=== PATIENT | male | born 1935 | race Caucasian/White ===

== ENCOUNTER → 2017-05-05 | Outpatient (CLI) | payer MEDICARE, OTHER ==
[2017-05-05 11:37] LABS: ALANINE AMINOTRANSFERASE 25 U/L (12-78); ALBUMIN 3.4 G/DL (3.4-5.0); ALKALINE PHOSPHATASE 76 IU/L (46-116); ANION GAP 9 (8-16); ASPARTATE AMINO TRANSFERASE 25 U/L (10-37); BILIRUBIN,TOTAL 0.7 MG/DL (0.1-1.0); BLOOD UREA NITROGEN 21 MG/DL (7-18); BUN/CREATININE RATIO 14.5 (5.4-32.0); CALCIUM 8.5 MG/DL (8.5-10.1); CHLORIDE 100 MMOL/L (99-107); CREATININE 1.45 MG/DL (0.60-1.10); GLUCOSE 131 MG/DL (70-104); POTASSIUM 4.1 MMOL/L (3.5-5.1); SODIUM 136 MMOL/L (135-145); TOTAL CARBON DIOXIDE 27.1 MMOL/L (24-32); TOTAL PROTEIN 6.9 G/DL (6.4-8.2); eGFR 46 ML/MIN
== END ==
LOC: LAB 10:08
PROVIDERS: ATTEND Specialist
DX: D35.2 Benign neoplasm of pituitary gland (principal); E06.3 Autoimmune thyroiditis
CPT/HCPCS: 36415; 80053; 84146; 84439; 84443

== ENCOUNTER 2017-05-27 08:47 | Inpatient (IN) | payer MEDICARE, OTHER ==
[~2017-05-27] VITALS: Ht 5954.8 cm; Wt 78.1 kg
[2017-05-27 09:22] LABS: BASOPHILS # (AUTO) 0.1 X10'3 (0-0.2); BASOPHILS % (AUTO) 0.7 % (0-1); EOSINOPHILS # (AUTO) 0.3 X10'3 (0-0.9); EOSINOPHILS % (AUTO) 3.4 % (0-6); HEMATOCRIT 39.8 % (42.0-52.0); HEMOGLOBIN 13.4 g/dl (14.0-17.9); LYMPHOCYTES # (AUTO) 1.2 X10'3 (1.1-4.8); LYMPHOCYTES % (AUTO) 15.5 % (21-51); MEAN CORPUSCULAR HEMOGLOBIN 32.3 PG (27.0-31.0); MEAN CORPUSCULAR HGB CONC 33.7 % (33.0-36.5); MEAN CORPUSCULAR VOLUME 95.9 FL (78-98); MONOCYTES # (AUTO) 0.3 X10'3 (0-0.9); MONOCYTES % (AUTO) 3.4 % (2-12); NEUTROPHILS # (AUTO) 6.1 X10'3 (1.8-7.7); PLATELET COUNT 144 X10'3 (140-440); RED BLOOD COUNT 4.15 X10'6 (4.70-6.10); WHITE BLOOD COUNT 7.9 X10'3 (4.5-11.0)
[2017-05-27 09:34] LABS: INR 1.4 INR; PARTIAL THROMBOPLASTIN TIME 30 SECONDS (22-32); PROTHROMBIN TIME 14.3 SECONDS (9.0-12.0)
[2017-05-27 09:38] LABS: ALANINE AMINOTRANSFERASE 80 U/L (12-78); ALBUMIN 3.6 G/DL (3.4-5.0); ALBUMIN/GLOBULIN RATIO 1.1 (1.1-1.5); ALKALINE PHOSPHATASE 113 IU/L (46-116); ANION GAP 13 (8-16); ASPARTATE AMINO TRANSFERASE 66 U/L (10-37); BILIRUBIN,TOTAL 2.1 MG/DL (0.1-1.0); BLOOD UREA NITROGEN 42 MG/DL (7-18); BUN/CREATININE RATIO 20.3 (5.4-32.0); CALCIUM 9.1 MG/DL (8.5-10.1); CHLORIDE 105 MMOL/L (99-107); CREATININE 2.07 MG/DL (0.60-1.10); GLUCOSE 70 MG/DL (70-104); POTASSIUM 4.4 MMOL/L (3.5-5.1); SODIUM 142 MMOL/L (135-145); TOTAL CARBON DIOXIDE 24.2 MMOL/L (24-32); TOTAL PROTEIN 6.9 G/DL (6.4-8.2); eGFR 31 ML/MIN
[2017-05-27] MEDS ORDERED: diltiazem-D5W 125mg/125ml 125 ML IV ONE (09:46)
[2017-05-27] MEDS ORDERED: diltiazem 5mg/ml 5ml inj. IV ONE (09:50)
[2017-05-27 10:15] LABS: MAGNESIUM 2.3 MG/DL (1.5-2.4)
[2017-05-27 10:30] LABS: ANISOCYTOSIS 1+; PLATELET ESTIMATE NORMAL
[2017-05-27 10:31] LABS: BURR CELLS 2+; ELLIPTOCYTES FEW; POLYCHROMASIA FEW; SCHISTOCYTES FEW
[2017-05-27 10:32] LABS: SPHEROCYTES FEW
[2017-05-27] MEDS ORDERED: LISI-600 PO (10:32)
[2017-05-27] MEDS ORDERED: LEVO75TA56 PO (10:33)
[2017-05-27] MEDS ORDERED: HYDR10TA14 PO (10:35)
[2017-05-27] MEDS ORDERED: CABE0.5T2 PO (10:40)
[2017-05-27] MEDS ORDERED: METO25TA6 PO (10:40)
[2017-05-27] MEDS ORDERED: APIX5TAB3 PO (10:41)
[2017-05-27] MEDS ORDERED: magnesium hydroxide 30ml (MOM) UD suspension PO PRN (10:45)
[2017-05-27] MEDS ORDERED: magnesium 4gm in 100ml NS 100 ML IV PRN (10:45)
[2017-05-27] MEDS ORDERED: potassium Cl 20 mEq SR tablet PO PRN ×2 (10:45)
[2017-05-27] MEDS ORDERED: magnesium 2GM in 50ml NS 50 ML IV PRN (10:45)
[2017-05-27] MEDS ORDERED: MORPHINE 2MG in 2ml NS syringe IV PRN (10:45)
[2017-05-27] MEDS ORDERED: potassium Cl 40MEQ/NS 500ml 500 ML IV PRN ×2 (10:45)
[2017-05-27] MEDS ORDERED: mag hydrox/Alum hydrox/simeth 30ml oral suspension PO PRN (10:45)
[2017-05-27] MEDS ORDERED: magnesium Cl slow-release 64mg tablet PO PRN (10:45)
[2017-05-27] MEDS ORDERED: HYDROcodone/acetaminophen 10/325mg tab PO PRN (10:45)
[2017-05-27] MEDS ORDERED: HYDROcodone/acetaminophen 5mg/325mg tablet PO PRN (10:45)
[2017-05-27] MEDS ORDERED: acetaminophen 325mg tablet PO PRN ×2 (10:45)
[2017-05-27] MEDS ORDERED: ondansetron/PF 4mg/2ml inj IV PRN (10:45)
[2017-05-27] MEDS ORDERED: morphine 4 MG/ML inj SYRINge IV PRN (19:03)
[2017-05-28 07:54] LABS: BASOPHILS % (AUTO) 0.7 % (0-1); EOSINOPHILS # (AUTO) 0.3 X10'3 (0-0.9); EOSINOPHILS % (AUTO) 7.3 % (0-6); HEMATOCRIT 35.2 % (42.0-52.0); HEMOGLOBIN 11.6 g/dl (14.0-17.9); LYMPHOCYTES # (AUTO) 0.7 X10'3 (1.1-4.8); LYMPHOCYTES % (AUTO) 16.5 % (21-51); MEAN CORPUSCULAR HEMOGLOBIN 31.9 PG (27.0-31.0); MEAN CORPUSCULAR HGB CONC 32.9 % (33.0-36.5); MEAN CORPUSCULAR VOLUME 97.1 FL (78-98); MEAN PLATELET VOLUME 9.1 FL (7.4-10.4); MONOCYTES # (AUTO) 0.2 X10'3 (0-0.9); MONOCYTES % (AUTO) 5.1 % (2-12); NEUTROPHILS # (AUTO) 3.1 X10'3 (1.8-7.7); NEUTROPHILS % (AUTO) 70.4 % (42-75); PLATELET COUNT 115 X10'3 (140-440); RED BLOOD COUNT 3.62 X10'6 (4.70-6.10); RED CELL DISTRIBUTION WIDTH 17.8 % (11.5-14.5); WHITE BLOOD COUNT 4.5 X10'3 (4.5-11.0)
[2017-05-28] MEDS: K and/or MAG REPLACEMENT MC SCH (08:00)
[2017-05-28 08:07] LABS: ALBUMIN 2.8 G/DL (3.4-5.0); ANION GAP 12 (8-16); BLOOD UREA NITROGEN 32 MG/DL (7-18); BUN/CREATININE RATIO 19.6 (5.4-32.0); CHLORIDE 108 MMOL/L (99-107); CREATININE 1.63 MG/DL (0.60-1.10); GLUCOSE 54 MG/DL (70-104); POTASSIUM 4.1 MMOL/L (3.5-5.1); SODIUM 143 MMOL/L (135-145); eGFR 41 ML/MIN
[2017-05-28] MEDS: levoTHYROXINE 75mcg tablet PO SCH (08:14)
[2017-05-28] MEDS: lisinopril 20mg tablet PO SCH (08:14)
[2017-05-28] MEDS: metoprolol tartrate 12.5mg (1/2 tablet) PO SCH ×2 (08:14→20:00)
[2017-05-28 08:32] LABS: PLATELET ESTIMATE DECREASED
[2017-05-28 08:33] LABS: ANISOCYTOSIS 2+
[2017-05-28] MEDS ORDERED: CABERGOLINE 1 MG PO SCH (09:00)
[2017-05-28] MEDS ORDERED: CABERGOLINE 0.5 MG PO SCH (09:03)
[2017-05-28] MEDS: hydrocortisone 10mg tablet PO SCH (10:09)
[2017-05-28] MEDS: apixaban 2.5mg tablet PO SCH ×2 (10:09→21:34)
[2017-05-28 12:30] VITALS: BP 100/52
[2017-05-28 15:00] VITALS: BP 95/50
[2017-05-28] MEDS ORDERED: pneumococcal 23-VAL P-sac vacc 25 mcg/0.5ml vial IMVAC ONE (17:55)
[2017-05-28 18:00] VITALS: BP 89/46
[2017-05-28 22:00] VITALS: BP 101/54
[2017-05-29 02:00] VITALS: BP 98/52
[2017-05-29 05:50] LABS: BASOPHILS % (AUTO) 0.3 % (0-1); EOSINOPHILS # (AUTO) 0.2 X10'3 (0-0.9); EOSINOPHILS % (AUTO) 3.3 % (0-6); HEMATOCRIT 33.9 % (42.0-52.0); HEMOGLOBIN 11.4 g/dl (14.0-17.9); LYMPHOCYTES # (AUTO) 0.5 X10'3 (1.1-4.8); LYMPHOCYTES % (AUTO) 11.4 % (21-51); MEAN CORPUSCULAR HEMOGLOBIN 32.1 PG (27.0-31.0); MEAN CORPUSCULAR HGB CONC 33.6 % (33.0-36.5); MEAN CORPUSCULAR VOLUME 95.7 FL (78-98); MEAN PLATELET VOLUME 9.7 FL (7.4-10.4); MONOCYTES # (AUTO) 0.2 X10'3 (0-0.9); MONOCYTES % (AUTO) 5.1 % (2-12); NEUTROPHILS # (AUTO) 3.7 X10'3 (1.8-7.7); NEUTROPHILS % (AUTO) 79.9 % (42-75); PLATELET COUNT 120 X10'3 (140-440); RED BLOOD COUNT 3.54 X10'6 (4.70-6.10); RED CELL DISTRIBUTION WIDTH 17.6 % (11.5-14.5); WHITE BLOOD COUNT 4.7 X10'3 (4.5-11.0)
[2017-05-29 06:00] VITALS: BP 106/59
[2017-05-29 06:36] LABS: ALBUMIN 2.6 G/DL (3.4-5.0); ANION GAP 9 (8-16); BLOOD UREA NITROGEN 24 MG/DL (7-18); BUN/CREATININE RATIO 17.6 (5.4-32.0); CALCIUM 7.8 MG/DL (8.5-10.1); CHLORIDE 105 MMOL/L (99-107); CREATININE 1.36 MG/DL (0.60-1.10); GLUCOSE 77 MG/DL (70-104); POTASSIUM 4.2 MMOL/L (3.5-5.1); SODIUM 139 MMOL/L (135-145); TOTAL CARBON DIOXIDE 25.3 MMOL/L (24-32); eGFR 50 ML/MIN
[2017-05-29] MEDS: lisinopril 20mg tablet PO SCH (07:32)
[2017-05-29] MEDS: levoTHYROXINE 75mcg tablet PO SCH (07:32)
[2017-05-29] MEDS: apixaban 2.5mg tablet PO SCH ×2 (07:32→20:04)
[2017-05-29] MEDS: metoprolol tartrate 12.5mg (1/2 tablet) PO SCH (07:32)
[2017-05-29] MEDS: hydrocortisone 10mg tablet PO SCH (07:33)
[2017-05-29] MEDS: K and/or MAG REPLACEMENT MC SCH (08:00)
[2017-05-29 11:00] VITALS: BP 94/66
[2017-05-29 15:00] VITALS: BP 94/62
[2017-05-29 19:00] VITALS: BP 97/55
[2017-05-29] MEDS: metoprolol succinate 25mg (24-HOUR) SR. Tablet PO SCH (20:03)
[2017-05-29 23:00] VITALS: BP 115/68
[2017-05-30 03:00] VITALS: BP 101/66
[2017-05-30 06:29] LABS: BASOPHILS % (AUTO) 0.6 % (0-1); EOSINOPHILS # (AUTO) 0.3 X10'3 (0-0.9); EOSINOPHILS % (AUTO) 6.2 % (0-6); HEMATOCRIT 35.8 % (42.0-52.0); HEMOGLOBIN 12.1 g/dl (14.0-17.9); LYMPHOCYTES # (AUTO) 0.7 X10'3 (1.1-4.8); LYMPHOCYTES % (AUTO) 16.6 % (21-51); MEAN CORPUSCULAR HEMOGLOBIN 32.2 PG (27.0-31.0); MEAN CORPUSCULAR HGB CONC 33.8 % (33.0-36.5); MEAN CORPUSCULAR VOLUME 95.1 FL (78-98); MEAN PLATELET VOLUME 9.7 FL (7.4-10.4); MONOCYTES # (AUTO) 0.4 X10'3 (0-0.9); MONOCYTES % (AUTO) 8.3 % (2-12); NEUTROPHILS % (AUTO) 68.3 % (42-75); PLATELET COUNT 121 X10'3 (140-440); RED BLOOD COUNT 3.76 X10'6 (4.70-6.10); RED CELL DISTRIBUTION WIDTH 17.4 % (11.5-14.5); WHITE BLOOD COUNT 4.4 X10'3 (4.5-11.0)
[2017-05-30 06:43] LABS: ALBUMIN 2.6 G/DL (3.4-5.0); ANION GAP 6 (8-16); BLOOD UREA NITROGEN 18 MG/DL (7-18); BUN/CREATININE RATIO 13.5 (5.4-32.0); CHLORIDE 108 MMOL/L (99-107); CREATININE 1.33 MG/DL (0.60-1.10); GLUCOSE 80 MG/DL (70-104); MAGNESIUM 2.1 MG/DL (1.5-2.4); POTASSIUM 4.1 MMOL/L (3.5-5.1); SODIUM 142 MMOL/L (135-145); TOTAL CARBON DIOXIDE 27.8 MMOL/L (24-32); eGFR 51 ML/MIN
[2017-05-30 07:00] VITALS: BP 127/76
[2017-05-30] MEDS: lisinopril 5mg tablet PO SCH (07:13)
[2017-05-30] MEDS: levoTHYROXINE 75mcg tablet PO SCH (07:13)
[2017-05-30] MEDS: hydrocortisone 10mg tablet PO SCH (07:13)
[2017-05-30] MEDS: apixaban 2.5mg tablet PO SCH ×2 (07:13→20:28)
[2017-05-30] MEDS: metoprolol succinate 25mg (24-HOUR) SR. Tablet PO SCH ×2 (07:13→20:28)
[2017-05-30] MEDS: K and/or MAG REPLACEMENT MC SCH (08:00)
[2017-05-30] MEDS ORDERED: metoprolol succinate 25mg (24-HOUR) SR. Tablet PO SCH (08:45)
[2017-05-30] MEDS ORDERED: digoxin 250mcg/ml 2ml ampule IV ONE (10:05)
[2017-05-30 11:00] VITALS: BP 115/66
[2017-05-30 15:00] VITALS: BP 113/71
[2017-05-30] MEDS: digoxin 250mcg/ml 2ml ampule IV SCH ×2 (17:14→19:58)
[2017-05-30 19:00] VITALS: BP 131/77
[2017-05-30 23:00] VITALS: BP 113/70
[2017-05-31 03:00] VITALS: BP 102/72
[2017-05-31 05:13] LABS: BASOPHILS % (AUTO) 0.6 % (0-1); EOSINOPHILS # (AUTO) 0.4 X10'3 (0-0.9); EOSINOPHILS % (AUTO) 6.8 % (0-6); HEMATOCRIT 41.5 % (42.0-52.0); LYMPHOCYTES # (AUTO) 0.9 X10'3 (1.1-4.8); LYMPHOCYTES % (AUTO) 17.5 % (21-51); MEAN CORPUSCULAR HEMOGLOBIN 32.7 PG (27.0-31.0); MEAN CORPUSCULAR HGB CONC 33.7 % (33.0-36.5); MEAN PLATELET VOLUME 9.6 FL (7.4-10.4); MONOCYTES # (AUTO) 0.3 X10'3 (0-0.9); MONOCYTES % (AUTO) 6.5 % (2-12); NEUTROPHILS # (AUTO) 3.7 X10'3 (1.8-7.7); NEUTROPHILS % (AUTO) 68.6 % (42-75); PLATELET COUNT 140 X10'3 (140-440); RED BLOOD COUNT 4.28 X10'6 (4.70-6.10); RED CELL DISTRIBUTION WIDTH 17.6 % (11.5-14.5); WHITE BLOOD COUNT 5.4 X10'3 (4.5-11.0)
[2017-05-31 05:30] LABS: ALBUMIN 2.8 G/DL (3.4-5.0); ANION GAP 7 (8-16); BLOOD UREA NITROGEN 15 MG/DL (7-18); BUN/CREATININE RATIO 11.2 (5.4-32.0); CALCIUM 8.3 MG/DL (8.5-10.1); CHLORIDE 107 MMOL/L (99-107); CREATININE 1.34 MG/DL (0.60-1.10); GLUCOSE 80 MG/DL (70-104); MAGNESIUM 2.2 MG/DL (1.5-2.4); POTASSIUM 4.3 MMOL/L (3.5-5.1); SODIUM 143 MMOL/L (135-145); TOTAL CARBON DIOXIDE 28.7 MMOL/L (24-32); eGFR 51 ML/MIN
[2017-05-31 06:54] VITALS: BP 137/72
[2017-05-31] MEDS ORDERED: digoxin 125mcg (0.125mg) tablet PO SCH (08:00)
[2017-05-31] MEDS: K and/or MAG REPLACEMENT MC SCH (08:00)
[2017-05-31] MEDS: apixaban 2.5mg tablet PO SCH (08:04)
[2017-05-31] MEDS: levoTHYROXINE 75mcg tablet PO SCH (08:04)
[2017-05-31] MEDS: hydrocortisone 10mg tablet PO SCH (08:04)
[2017-05-31] MEDS: lisinopril 5mg tablet PO SCH (08:04)
[2017-05-31] MEDS: metoprolol succinate 25mg (24-HOUR) SR. Tablet PO SCH (08:04)
[2017-05-31 11:00] VITALS: BP 136/76
[2017-05-31] MEDS ORDERED: METO-395 PO (12:44)
[2017-05-31] MEDS ORDERED: LISI-604 PO (12:44)
[2017-05-31] MEDS ORDERED: DIGO125T5 PO (12:44)
[2017-06-01] MEDS ORDERED: digoxin 125mcg (0.125mg) tablet PO SCH (08:00)
== END 2017-05-31 16:10 | disposition home or self-care (01) | DRG 280 ==
LOC: ER 08:47 → ED HOLD 10:43 → PCU 3S 05-28 12:30
PROVIDERS: ADMIT Internal Medicine; ATTEND Internal Medicine
DX: I48.91 Unspecified atrial fibrillation (principal); I50.23 Acute on chronic systolic (congestive) heart failure; I21.A1 Myocardial infarction type 2; N17.9 Acute kidney failure, unspecified; I13.0 Hypertensive heart and chronic kidney disease with heart failure and stage 1 through stage 4 chronic kidney disease, or unspecified chronic kidney disease; E29.1 Testicular hypofunction; I08.0 Rheumatic disorders of both mitral and aortic valves; R09.02 Hypoxemia; N18.9 Chronic kidney disease, unspecified; Z79.01 Long term (current) use of anticoagulants; Z79.899 Other long term (current) drug therapy
CPT/HCPCS: 36415; 71045; 80048; 80053; 80162; 83605; 83735; 83880; 84484; 85025; 85610; 85730; 87040; 87070; 90732; 93005; 93306; 96365; 99291; A6212; J1160; J3490

== ENCOUNTER 2017-12-16 10:38 | Emergency (ER) | payer MEDICARE, OTHER ==
[~2017-12-16] VITALS: Ht 177.8 cm; Wt 78.0 kg
[~2017-12-16 10:38] MED LIST: APIX5TAB3 PO; CABE0.5T2 PO; DIGO125T5 PO; HYDR10TA14 PO; LEVO75TA56 PO; LISI-604 PO; METO-395 PO
[2017-12-16] MEDS ORDERED: HYDROmorphone inj. 0.5 MG/0.5 ML DISP.SYRIN IV ONE (11:10)
[2017-12-16 11:17] LABS: BASOPHILS % (AUTO) 1.4 % (0-1); EOSINOPHILS # (AUTO) 0.2 X10'3 (0-0.9); EOSINOPHILS % (AUTO) 5.9 % (0-6); HEMATOCRIT 29.3 % (42.0-52.0); HEMOGLOBIN 9.9 g/dl (14.0-17.9); LYMPHOCYTES # (AUTO) 1.1 X10'3 (1.1-4.8); LYMPHOCYTES % (AUTO) 33.4 % (21-51); MEAN CORPUSCULAR HEMOGLOBIN 31.7 PG (27.0-31.0); MEAN CORPUSCULAR HGB CONC 33.6 % (33.0-36.5); MEAN CORPUSCULAR VOLUME 94.3 FL (78-98); MEAN PLATELET VOLUME 9.1 FL (7.4-10.4); MONOCYTES # (AUTO) 0.3 X10'3 (0-0.9); NEUTROPHILS # (AUTO) 1.6 X10'3 (1.8-7.7); NEUTROPHILS % (AUTO) 51.3 % (42-75); PLATELET COUNT 153 X10'3 (140-440); RED BLOOD COUNT 3.11 X10'6 (4.70-6.10); RED CELL DISTRIBUTION WIDTH 14.1 % (11.5-14.5); WHITE BLOOD COUNT 3.2 X10'3 (4.5-11.0)
[2017-12-16 11:30] LABS: INR 2.6 INR; PARTIAL THROMBOPLASTIN TIME 46 SECONDS (22-32); PROTHROMBIN TIME 26.3 SECONDS (9.0-12.0)
[2017-12-16 11:39] LABS: ALANINE AMINOTRANSFERASE 12 U/L (12-78); ALBUMIN 2.8 G/DL (3.4-5.0); ALBUMIN/GLOBULIN RATIO 0.9 (1.1-1.5); ALKALINE PHOSPHATASE 78 IU/L (46-116); ANION GAP 13 (8-16); ASPARTATE AMINO TRANSFERASE 26 U/L (10-37); BILIRUBIN,TOTAL 1.1 MG/DL (0.1-1.0); BLOOD UREA NITROGEN 18 MG/DL (7-18); BUN/CREATININE RATIO 15.9 (5.4-32.0); CALCIUM 8.1 MG/DL (8.5-10.1); CHLORIDE 104 MMOL/L (99-107); CREATININE 1.13 MG/DL (0.60-1.10); GLUCOSE 95 MG/DL (70-104); POTASSIUM 3.9 MMOL/L (3.5-5.1); SODIUM 139 MMOL/L (135-145); TOTAL CARBON DIOXIDE 22.4 MMOL/L (24-32); TOTAL PROTEIN 5.8 G/DL (6.4-8.2); eGFR 62 ML/MIN
[2017-12-16] MEDS ORDERED: normal saline 1000ml 1,000 ML IV ONE (11:45)
[2017-12-16] MEDS ORDERED: WARF2TAB PO (13:30)
[2017-12-16] MEDS ORDERED: SACU1TAB7 (13:30)
[2017-12-16] MEDS ORDERED: FURO-150 PO (13:30)
[2017-12-16] MEDS ORDERED: METO-384 PO (13:30)
[2017-12-16] MEDS ORDERED: LISI-642 PO (13:30)
[2017-12-16] MEDS ORDERED: DIGO125T PO (13:30)
[2017-12-16] MEDS ORDERED: normal saline 1000ML IV soln IVB ONE (15:00)
[2017-12-16 15:16] LABS: ABG HCO3 22.5 mmol/L (22.0-26.0); ABG OXYGEN SATURATION 96.7 % (95-98); ABG PCO2 (T) 41.6 mmHg (35.0-48.0); ABG PO2 (T) 101.6 mmHg (83-108); ALLEN'S TEST Positive; FCOHb 0.3 % (0.5-1.5); FLOW 3 L/min; FO2Hb 96.4 % (94-100); RESPIRATORY RATE (OBSERVED) 16 b/min; TOTAL HEMOGLOBIN 9.2 G/dl (14.0-18.0)
[2017-12-16 16:40] LABS: BASOPHILS % (AUTO) 0.7 % (0-1); EOSINOPHILS # (AUTO) 0.2 X10'3 (0-0.9); EOSINOPHILS % (AUTO) 6.2 % (0-6); HEMATOCRIT 25.6 % (42.0-52.0); HEMOGLOBIN 8.9 g/dl (14.0-17.9); LYMPHOCYTES % (AUTO) 31.9 % (21-51); MEAN CORPUSCULAR HEMOGLOBIN 32.9 PG (27.0-31.0); MEAN CORPUSCULAR HGB CONC 34.8 % (33.0-36.5); MEAN CORPUSCULAR VOLUME 94.4 FL (78-98); MEAN PLATELET VOLUME 8.8 FL (7.4-10.4); MONOCYTES # (AUTO) 0.3 X10'3 (0-0.9); MONOCYTES % (AUTO) 8.7 % (2-12); NEUTROPHILS # (AUTO) 1.6 X10'3 (1.8-7.7); NEUTROPHILS % (AUTO) 52.5 % (42-75); PLATELET COUNT 127 X10'3 (140-440); RED BLOOD COUNT 2.72 X10'6 (4.70-6.10); RED CELL DISTRIBUTION WIDTH 14.6 % (11.5-14.5); WHITE BLOOD COUNT 3.1 X10'3 (4.5-11.0)
[2017-12-16 17:43] VITALS: BP 120/60
[2017-12-16 18:29] LABS: MAGNESIUM 1.4 MG/DL (1.5-2.4)
== END 2017-12-16 17:44 | disposition home or self-care (01) ==
LOC: ER 10:38
DX: I95.9 Hypotension, unspecified (principal); R51 Headache; I10 Essential (primary) hypertension; Z79.899 Other long term (current) drug therapy; Z79.01 Long term (current) use of anticoagulants; Z86.73 Personal history of transient ischemic attack (TIA), and cerebral infarction without residual deficits
CPT/HCPCS: 36415; 36600; 70450; 71045; 80053; 80162; 82803; 82948; 83605; 83735; 84145; 84484; 85018; 85025; 85610; 85651; 85730; 87040; 93005; 96361; 96374; 99285; J1170

== ENCOUNTER 2018-01-31 16:26 | Emergency (ER) | payer MEDICARE, OTHER ==
[~2018-01-31] VITALS: Ht 177.8 cm; Wt 69.1 kg
[~2018-01-31 16:26] MED LIST changes: +DIGO125T PO; -DIGO125T5 PO; +FURO-150 PO; -HYDR10TA14 PO; -LISI-604 PO; +LISI-642 PO; +METO-384 PO; -METO-395 PO; +SACU1TAB7; +WARF2TAB PO
[2018-01-31 17:20] LABS: BASOPHILS % (AUTO) 0.5 % (0-1); EOSINOPHILS # (AUTO) 0.1 X10'3 (0-0.9); EOSINOPHILS % (AUTO) 3.6 % (0-6); HEMATOCRIT 27.9 % (42.0-52.0); HEMOGLOBIN 9.2 g/dl (14.0-17.9); LYMPHOCYTES # (AUTO) 1.1 X10'3 (1.1-4.8); LYMPHOCYTES % (AUTO) 29.4 % (21-51); MEAN CORPUSCULAR HGB CONC 32.9 % (33.0-36.5); MEAN CORPUSCULAR VOLUME 94.3 FL (78-98); MEAN PLATELET VOLUME 7.5 FL (7.4-10.4); MONOCYTES # (AUTO) 0.3 X10'3 (0-0.9); NEUTROPHILS # (AUTO) 2.1 X10'3 (1.8-7.7); NEUTROPHILS % (AUTO) 58.5 % (42-75); PLATELET COUNT 172 X10'3 (140-440); RED BLOOD COUNT 2.96 X10'6 (4.70-6.10); RED CELL DISTRIBUTION WIDTH 16.8 % (11.5-14.5); WHITE BLOOD COUNT 3.7 X10'3 (4.5-11.0)
[2018-01-31 17:36] LABS: ALANINE AMINOTRANSFERASE 8 U/L (12-78); ALBUMIN 2.8 G/DL (3.4-5.0); ALBUMIN/GLOBULIN RATIO 0.8 (1.1-1.5); ALKALINE PHOSPHATASE 87 IU/L (46-116); ANION GAP 7 (8-16); ASPARTATE AMINO TRANSFERASE 19 U/L (10-37); BILIRUBIN,TOTAL 0.7 MG/DL (0.1-1.0); BLOOD UREA NITROGEN 12 MG/DL (7-18); BUN/CREATININE RATIO 12.2 (5.4-32.0); CHLORIDE 102 MMOL/L (99-107); CREATININE 0.98 MG/DL (0.60-1.10); GLUCOSE 81 MG/DL (70-104); POTASSIUM 3.4 MMOL/L (3.5-5.1); SODIUM 141 MMOL/L (135-145); TOTAL CARBON DIOXIDE 31.9 MMOL/L (24-32); TOTAL PROTEIN 6.4 G/DL (6.4-8.2); eGFR 73 ML/MIN
[2018-01-31 17:38] LABS: INR 1.7 INR; PARTIAL THROMBOPLASTIN TIME 38 SECONDS (22-32); PROTHROMBIN TIME 16.6 SECONDS (9.0-12.0)
[2018-01-31] MEDS ORDERED: normal saline 1000ML IV soln IVB ONE (18:20)
[2018-01-31] MEDS: normal saline 1000ML IV soln IVB ONE ×2 (18:48→18:49)
[2018-01-31 20:19] LABS: CLARITY,URINE CLEAR (Clear); COLOR,URINE YELLOW (Yellow); GLUCOSE, URINE NEGATIVE (Neg); KETONES,URINE NEGATIVE (Neg); LEUKOCYTE ESTERASE ,URINE NEGATIVE (Neg); NITRITES, URINE NEGATIVE (Neg); OCCULT BLOOD,URINE NEGATIVE (Neg); PROTEIN,URINE NEGATIVE (Neg)
[2018-01-31 20:23] LABS: UA COLLECTION TYPE CLN CATCH MIDSTREAM
[2018-01-31 21:00] VITALS: BP 139/76
== END 2018-01-31 21:03 | disposition home or self-care (01) ==
LOC: ER 16:27
DX: R53.1 Weakness (principal); I48.91 Unspecified atrial fibrillation; I10 Essential (primary) hypertension
CPT/HCPCS: 36415; 80053; 81003; 84484; 85025; 85610; 85730; 99284; J7030